=== PATIENT | male | born 1945 | race Caucasian/White ===

== ENCOUNTER 2019-07-16 15:18 | Emergency (ER) | payer OTHER, SELFPAY ==
--- NOTE | 2019-07-16 | CTR_ITS ---
[facility] Final Radiology Report Call: [phone] assistance Online chat: [email or web address] Name: NICHOLAS SMALL Age: 73Years M Date: 07/16/2019 SSN: -- : [id number] Study: CT CHEST W Requesting Physician: KRISTOPHER VIRGEN Images: [id number] Add?l Studies: Provided Clinical History: Procedure Accession CTDI Vol (mGy) DLP (mGy-cm) CT CHEST W [id number] 455.23 PROCEDURE INFORMATION: Exam: CT Chest With Contrast Exam date and time: 07/16/2019 7:07 PM Age: 73 years old Clinical indication: Shortness of breath TECHNIQUE: Imaging protocol: Computed tomography of the chest with intravenous contrast. Radiation optimization: All CT scans at this facility use at least one of these dose optimization techniques: automated exposure control; mA and/or kV adjustment per patient size (includes targeted exams where dose is matched to clinical indication); or iterative reconstruction. Contrast material: OMNI 300; Contrast volume: 95 ml; Contrast route: IV; COMPARISON: CR XR chest 2V* [id number] 07/16/2019 4:59 PM FINDINGS: Lungs: Advanced generalized centrilobular emphysema is noted diffusely throughout all lobes and is more severe in the lung apices. No pneumonia or mass. Pleural space: Unremarkable. No pneumothorax. No pleural effusion. Heart: Unremarkable. No cardiomegaly. No pericardial effusion. Pulmonary arteries: Overall exam quality is good for evaluating the pulmonary arteries. There are no intraluminal filling defects to indicate pulmonary embolism. Aorta: The ascending thoracic aorta is mildly enlarged up to 4.1 cm. There is no dissection or wall thickening. The descending thoracic aorta is atherosclerotic but normal in size. The visualized abdominal aorta is heavily atherosclerotic. Lymph nodes: Unremarkable. No enlarged lymph nodes. Gallbladder and bile ducts: Gallstones in the gallbladder nonobstructing. Adrenals: 1.3 cm fatty right adrenal nodule is most consistent with adenoma. Kidneys and ureters: Several bilateral simple intrarenal cysts. At least one 6 mm non-obstructing left intrarenal calculus. Bones/joints: Unremarkable. No acute fracture. Soft tissues: See Aorta Finding. IMPRESSION: 1. No pulmonary embolism or pneumonia. 2. Advanced emphysema. 3. Mildly dilated ascending thoracic aorta. 4. Nonobstructing gallstones. 5. Nonobstructing left intrarenal calculus. Thank you for allowing us to participate in the care of your patient. Dictated and Authenticated by: Jordana Cutler MD 07/16/2019 7:18 PM Central Time ([place] & [place]) [facility]ITAL[facility]ak[facility]
[2019-07-16 15:53] VITALS: BP 148/71; PULSE 84; RESP 20; TEMP 36.8; O2SAT 80; BMI 17.5
[2019-07-16 16:07] VITALS: O2SAT 93
--- NOTE | 2019-07-16 16:16 | ED_ITS ---
Entered by Kathrin Clemens, acting as scribe for Jami Castro MD, MSM Jul 16, 2019 15:18 HPI - SOB/Dyspnea General: Chief Complaint: Shortness of Breath/Dyspnea Stated Complaint: SOB Time Seen by Provider: 07/16/19 16:07 Source: patient and family Mode of arrival: ambulatory Limitations: no limitations History of Present Illness: HPI Narrative: 73 yo male presents with increased shortness of breath. pt states this started 2 days ago. pt states this he wears 4L at home and to increased oxygen to 4 1/2 L. pt states exertion, cough and deep breaths makes this worse and sitting upright makes it better. pt denies any other symptoms at this time.pt has a hx of COPD. MD elicited complaint: shortness of breath Pertinent past history: COPD Onset (ago): day(s) (2 days ago) Timing: progressively worsening Severity: moderate Exacerbating factors: exertion, coughing and deep breaths Relieving factors: oxygen Known history of: COPD Associated symptoms: Reports cough; Deny abdominal pain, fever(s), nausea, polydipsia, polyuria or vomiting Treatment prior to arrival: oxygen Related Data: Home oxygen amount: 4 liters Review of Systems General: Reports: 10 or more systems reviewed and unremarkable except in HPI and below Const: Denies: fever, chills or body aches Eyes: Reports: blind spots; Denies: change in vision or blurry vision ENMT: Denies: throat pain, enlarged tonsils, painful swallowing, hoarseness, mouth pain or swelling of lips/tongue Card: Reports: shortness of breath on exertion Resp: Reports: productive cough GI: Denies: abdominal pain, nausea or vomiting : Denies: flank pain, painful urination, urinary frequency, urinary urgency or urinary hesitancy Musc: Denies: neck pain, back pain or extremity swelling Skin/Breast: Denies: rash, itching or redness Neuro: Denies: headache, numbness in extremities or weakness in extremities Endo: Denies: excessive urination, excessive thirst or tired all the time PFS ED PFSH: Medical History (Updated 07/16/19 @ 21:07 by Jami Castro MD, [facility]) History of chronic obstructive pulmonary disease Social History Smoking and tobacco status: former smoker Physical Exam Const: COMMON NORMALS: no apparent distress, average body habitus, oriented x3, no limitations, healthy appearing, alert and well nourished HENMT: COMMON NORMALS: normocephalic, head/scalp atraumatic and moist oral mucous membranes HEAD & SCALP: normocephalic and atraumatic Eye: COMMON NORMALS: PERRL, EOMs intact bilaterally, conjunctivae normal and no scleral icterus CONJUNCTIVA: Yes conjunctivae normal PUPIL: Yes PERRL Neck/C-Spine: COMMON NORMALS: full ROM, supple, no meningeal signs, no JVD and no carotid bruits Chest: COMMONS NORMALS: inspection of chest normal and palpation of chest normal Resp: COMMON NORMALS: normal respiratory effort, no retractions, no use of accessory muscles, clear to auscultation bilaterally and percussion normal AUSCULTATION: clear to auscultation bilaterally PERCUSSION: percussion normal Cardio: COMMON NORMALS: no JVD, regular rate, regular rhythm, S1 normal heart sound, S2 normal heart sound, no gallops, no clicks, no murmurs, no rub and peripheral pulses 2+ throughout RATE: regular rate RHYTHM: regular rhythm HEART SOUNDS: S1 normal and S2 normal PERIPHERAL PULSES: pulses 2+ throughout GI: COMMON NORMALS: normal to inspection, nondistended, normoactive bowel sounds, soft to palpation, non-tender, no hepatosplenomegaly, no masses and no bruits PALPATION: Yes soft and Yes no hepatosplenomegaly : COMMON NORMALS: Yes no CVA tenderness BLADDER/KIDNEY EXAM: Yes no CVA tenderness Back/Pelvis: COMMON NORMALS: no CVA tenderness Extremity: COMMON NORMALS: normal to inspection, full ROM, normal capillary refill, no calf tenderness and no pedal edema Neuro: COMMON NORMALS: oriented x3 SENSORIUM/ORIENTATION: Yes alert MENINGEAL SIGNS: Yes no meningeal signs Skin: COMMON NORMALS: no rashes or lesions noted, no wounds, skin turgor normal, no jaundice, no petechiae and no mottling GENERAL SKIN EXAM: no rashes or lesions noted and turgor normal Course ED course: On further discussion with the patient, the patient and his niece state that he has been in and out of the hospital at [facility] about 6 times in the last 3 months for respiratory/cardiac issues. He just got discharged a few days ago after a 5-day stay in the hospital for COPD exacerbation. He is still currently on prednisone. He is not currently on antibiotics. Reevaluation(s): Reevaluation #1: Discussed his lab and imaging findings with him. White cell count is significantly elevated however the patient is cu rrently on prednisone. Chest x-ray and chest CT negative for pneumonia or other acute findings. Troponin mildly elevated but 2-hour delta flat. After explaining all his labs and imaging findings with him we discussed all possible treatment options including admission versus outpatient care. The patient opted to be discharged home. He obtained marked improvement following the DuoNeb breathing treatments. He recently had a course of antibiotics and I will give him a 5-day course of Levaquin. He voiced understanding and is in agreement with the plan Time: 21:05 Vital Signs: Vital signs: Vital Signs Temperature 98.2 F 07/16/19 15:53 Pulse Rate 62 07/16/19 21:58 Respiratory Rate 16 07/16/19 21:58 Blood Pressure 145/74 07/16/19 21:58 Pulse Oximetry 95 07/16/19 21:58 MDM - SOB/Dyspnea MDM Narrative: Medical decision making narrative: 73-year-old gentleman with clinical features consistent with a COPD exacerbation. Patient has had increased shortness of breath and increased his oxygen slightly from 4 L/min to 4-1/2 L/min over the last few days. Patient obtained improvement following intravenous steroids as well as inhaled beta agonist. Patient opted to be discharged home as he felt better. He will follow-up with his primary care provider and his aerobics teacher. Leukocytosis is likely secondary to steroid use. Medical Records: Attestation: I reviewed the patient's medical records. Lab Data: Attestation: I reviewed the patient's lab results. Labs: Lab Results 07/16/19 07/16/19 07/16/19 Range/Units 16:20 16:20 16:20 WBC 19.1 H (4.0-10.0) 10^3/ uL RBC 4.57 (4.1-5.3) 10^6/u L Hgb 13.4 (11.7-16.6) g/dL Hct 44.0 (42.0-52.0) % MCV 96.3 H (80-94) fL MCH 29.3 (28.0-34.0) pg MCHC 30.5 (30.0-36.0) g/dL RDW 15.2 H (12.1-15.1) % Plt Count 349 (130-400) 10^3/c mm MPV 10.8 H (7.4-10.4) fL Neut % (Auto) 91.8 % Lymph % (Auto) 2.9 % Meigs % (Auto) 2.7 % Eos % (Auto) 0.1 % Baso % (Auto) 0.1 % Neut # (Auto) 17.6 H (1.8-7.7) 10^3/u L Lymph # (Auto) 0.6 L (0.8-4.8) 10^3/u L Meigs # (Auto) 0.5 (0.2-0.9) 10^3/u L Eos # (Auto) 0.0 (0.0-0.8) 10^3/u L Baso # (Auto) 0.0 (0.0-0.1) 10^3/u L Nucleated RBC % (a uto) 0 % Nucleated RBCs # 0.0 /100WBC D-Dimer 0.43 (0-0.59) ug/mIFE U Sodium 143 (136-145) mmol/L Potassium 5.0 (3.5-5.1) mmol/L Chloride 100 (98-107) mmol/L Carbon Dioxide 34 H (22-29) mmol/L Anion Gap 14.0 (5-19) BUN 37 H (8-23) mg/dL Creatinine 0.9 (0.7-1.2) mg/dL Glucose 121 H (65-115) mg/dL Lactate (0.5-2.2) mmol/L Calcium 9.3 (8.5-10.5) mg/dL Total Bilirubin 0.4 (0.15-1.2) mg/dL AST 11 (0-40) U/L ALT 17 (0-41) U/L Alkaline Phosphata se 64 (40-130) IU/L Troponin T Baselin e (0-15) ng/mL Troponin T 120 Min united auburn (0-15) ng/mL Delta Troponin T (0-10) ABS# NT-Pro-B Natriuret Pep 391 H (0-125) pg/mL Total Protein 6.3 L (6.6-8.7) g/dL Albumin 4.2 (3.5-5.2) g/dL Globulin 2.1 (1.3-4.6) g/dL Influenza Type A A g (Negative) POC Influenza B Ag (Negative) 07/16/19 07/16/19 07/16/19 Range/Units 16:20 16:20 16:35 WBC (4.0-10.0) 10^3/ uL RBC (4.1-5.3) 10^6/u L Hgb (11.7-16.6) g/dL Hct (42.0-52.0) % MCV (80-94) fL MCH (28.0-34.0) pg MCHC (30.0-36.0) g/dL RDW (12.1-15.1) % Plt Count (130-400) 10^3/c mm MPV (7.4-10.4) fL Neut % (Auto) % Lymph % (Auto) % Meigs % (Auto) % Eos % (Auto) % Baso % (Auto) % Neut # (Auto) (1.8-7.7) 10^3/u L Lymph # (Auto) (0.8-4.8) 10^3/u L Meigs # (Auto) (0.2-0.9) 10^3/u L Eos # (Auto) (0.0-0.8) 10^3/u L Baso # (Auto) (0.0-0.1) 10^3/u L Nucleated RBC % (a uto) % Nucleated RBCs # /100WBC D-Dimer (0-0.59) ug/mIFE U Sodium (136-145) mmol/L Potassium (3.5-5.1) mmol/L Chloride (98-107) mmol/L Carbon Dioxide (22-29) mmol/L Anion Gap (5-19) BUN (8-23) mg/dL Creatinine (0.7-1.2) mg/dL Glucose (65-115) mg/dL Lactate 1.3 (0.5-2.2) mmol/L Calcium (8.5-10.5) mg/dL Total Bilirubin (0.15-1.2) mg/dL AST (0-40) U/L ALT (0-41) U/L Alkaline Phosphata se (40-130) IU/L Troponin T Baselin e 25 H (0-15) ng/mL Troponin T 120 Min united [place] (0-15) ng/mL Delta Troponin T (0-10) ABS# NT-Pro-B Natriuret Pep (0-125) pg/mL Total Protein (6.6-8.7) g/dL Albumin (3.5-5.2) g/dL Globulin (1.3-4.6) g/dL Influenza Type A A g Negative (Negative) POC Influenza B Ag Negative (Negative) 07/16/19 Range/Units 18:07 WBC (4.0-10.0) 10^3/ uL RBC (4.1-5.3) 10^6/u L Hgb (11.7-16.6) g/dL Hct (42.0-52.0) % MCV (80-94) fL MCH (28.0-34.0) pg MCHC (30.0-36.0) g/dL RDW (12.1-15.1) % Plt Count (130-400) 10^3/c mm MPV (7.4-10.4) fL Neut % (Auto) % Lymph % (Auto) % Meigs % (Auto) % Eos % (Auto) % Baso % (Auto) % Neut # (Auto) (1.8-7.7) 10^3/u L Lymph # (Auto) (0.8-4.8) 10^3/u L Meigs # (Auto) (0.2-0.9) 10^3/u L Eos # (Auto) (0.0-0.8) 10^3/u L Baso # (Auto) (0.0-0.1) 10^3/u L Nucleated RBC % (a uto) % Nucleated RBCs # /100WBC D-Dimer (0-0.59) ug/mIFE U Sodium (136-145) mmol/L Potassium (3.5-5.1) mmol/L Chloride (98-107) mmol/L Carbon Dioxide (22-29) mmol/L Anion Gap (5-19) BUN (8-23) mg/dL Creatinine (0.7-1.2) mg/dL Glucose (65-115) mg/dL Lactate (0.5-2.2) mmol/L Calcium (8.5-10.5) mg/dL Total Bilirubin (0.15-1.2) mg/dL AST (0-40) U/L ALT (0-41) U/L Alkaline Phosphata se (40-130) IU/L Troponin T Baselin e (0-15) ng/mL Troponin T 120 Min united [place] 23.73 H (0-15) ng/mL Delta Troponin T -1.27 L (0-10) ABS# NT-Pro-B Natriuret Pep (0-125) pg/mL Total Protein (6.6-8.7) g/dL Albumin (3.5-5.2) g/dL Globulin (1.3-4.6) g/dL Influenza Type A A g (Negative) POC Influenza B Ag (Negative) EKG Data^: EKG 1: Attestation: I personally reviewed and interpreted this EKG as follows: EKG Interpretation Date: 07/16/19 EKG interpretation time: 16:35 Prior EKG tracings: not available for review Interpretation: Normal sinus rhythm. Heart rate 74. No ST changes. Normal axis. EKG 2: Attestation: I personally reviewed and interpreted this EKG as follows: EKG Interpretation Date: 07/16/19 EKG interpretation time: 18:29 Prior EKG tracings: available for review Interpretation: Unchanged from earlier today Discharge Plan Discharge Patient Disposition: Home, Self-Care Clinical Impression: Acute exacerbation of chronic obstructive airways disease Condition: Stable Prescriptions: New levofloxacin 750 mg tablet 750 mg PO DAILY 5 Days Qty: 5 RF: 0 Continued prednisone 10 mg tablet See Rx Instructions .ROUTE .COMPLEX RF: 0 albuterol sulfate 2.5 mg /3 mL (0.083 %) solution for nebulization 2.5 mg inhalation Q4H PRN (Reason: Shortness Of Breath) RF: 0 amiodarone 200 mg tablet 200 mg PO BID RF: 0 tamsulosin 0.4 mg capsule 0.4 mg PO BEDTIME RF: 0 aspirin 81 mg Tablet,Chewable 81 mg PO DAILY RF: 0 metoprolol succinate 25 mg tablet extended release 24 hr 25 mg PO DAILY RF: 0 28 mg iron- 800 mcg Tablet 1 tab PO DAILY RF: 0 Discharge Orders: Discharge Order (Routine); Ordered 07/16/19 Ordered By: Jami Castro Referrals: Anupama Hyman MD [Primary Care Provider] - 4-7 days Patient Instructions: Chronic Obstructive Pulmonary Disease (ED) Activity Restrictions/Additional Instructions: Return for any new or worsening symptoms. Take the antibiotic as prescribed. Complete your steroids that you are currently taking. Use your breathing treatments every 4 hours as you are doing. Call your aerobics teacher tomorrow to schedule an appointment to be seen as soon as possible. Follow-up with your primary care provider within 1 week. Discharge Date/Time: 07/16/19 22:00 Coding Level of Care Code ED Scale Tester for Chg Fwd Exam Comprehensive The documentation recorded by the Sarath sanchez Bridget Annette, accurately reflects the service I personally performed and the decisions made by , Jami Castro MD, [facility] Jul 16, 2019 15:18
--- NOTE | 2019-07-16 16:26 | ECG_ITS ---
Measurements Intervals [place] Rate: 74 P: 76 IA: 170 QRS: 12 QRSD: 69 T: 70 QT: 374 QTc: 416 SINUS RHYTHM Compared to ECG 09/14/2018 01:51:53 No significant changes Electronically Signed On 07-17-2019 13:19:17 ROUGE MILLER by Mojgan Paul M.D. [email or web address]
--- NOTE | 2019-07-16 16:28 | XR_ITS ---
WS: [id number] XR chest 2V* [id number] REASON FOR EXAM: SOB FINDINGS: Hyperaeration of both lung archuleta with decreased vascularity and increased radiolucency of both lung archuleta. Findings consistent with advanced chronic obstructive pulmonary disease. Comparison s were made to September 14, 2018 appears to be increased changes in both lung archuleta. The heart and mediastinal interfaces were normal. Arteriosclerotic changes in the arch of the aorta. The hilum and apices are normal. XR/XR chest 2V* [id number] IMPRESSION: Moderately advanced chronic obstructive pulmonary disease. Arteriosclerotic changes in the arch of the aorta.
[2019-07-16 16:52] LABS: Basophils % 0.1 %; Eosinophils % 0.1 %; Hemoglobin 13.4 g/dL (11.7-16.6); Lymphocytes # 0.6 10^3/uL (0.8-4.8); Lymphocytes % 2.9 %; Mean Corpuscular HGB Conc 30.5 g/dL (30.0-36.0); Mean Corpuscular Hemoglobin 29.3 pg (28.0-34.0); Mean Corpuscular Volume 96.3 fL (80-94); Mean Platelet Volume 10.8 fL (7.4-10.4); Monocytes # 0.5 10^3/uL (0.2-0.9); Monocytes % 2.7 %; Neutrophils # 17.6 10^3/uL (1.8-7.7); Neutrophils % 91.8 %; Nucleated Red Blood Cells % 0 %; Platelet Count 349 10^3/cmm (130-400); Red Blood Count 4.57 10^6/uL (4.1-5.3); Red Cell Distribution Width 15.2 % (12.1-15.1); White Blood Count 19.1 10^3/uL (4.0-10.0)
[2019-07-16 16:59] LABS: D Dimer 0.43 ug/mIFEU (0-0.59)
[2019-07-16 17:06] LABS: Influenza A by IFA Negative (Negative); Influenza B by IFA Negative (Negative)
[2019-07-16 17:07] LABS: Lactate (Lactic Acid level) 1.3 mmol/L (0.5-2.2)
[2019-07-16 17:10] LABS: Troponin(5th) Baseline 25 ng/mL (0-15)
[2019-07-16 17:28] LABS: Alanine Aminotransferase 17 U/L (0-41); Albumin Level 4.2 g/dL (3.5-5.2); Alkaline Phosphatase 64 IU/L (40-130); Aspartate Amino Transferase 11 U/L (0-40); Blood Urea Nitrogen 37 mg/dL (8-23); Calcium 9.3 mg/dL (8.5-10.5); Carbon Dioxide 34 mmol/L (22-29); Chloride 100 mmol/L (98-107); Globulin 2.1 g/dL (1.3-4.6); Glucose 121 mg/dL (65-115); NT Pro B Type Natriuretic Pept 391 pg/mL (0-125); Sodium 143 mmol/L (136-145); Total Bilirubin 0.4 mg/dL (0.15-1.2); Total Protein 6.3 g/dL (6.6-8.7)
[2019-07-16 17:38] VITALS: PULSE 120; RESP 18; O2SAT 97
[2019-07-16] MEDS: ipratropium-albuterol 3 mL Neb INHALATION (17:38)
[2019-07-16 17:44] VITALS: PULSE 114; RESP 18; O2SAT 97
--- NOTE | 2019-07-16 18:26 | ECG_ITS ---
Measurements Intervals [place] Rate: 74 P: 76 OR: 170 QRS: 12 QRSD: 69 T: 70 QT: 374 QTc: 416 SINUS RHYTHM Compared to ECG 09/14/2018 01:51:53 No significant changes Electronically Signed On 07-17-2019 17:31:31 CHIEF PHYSICAL THERAPIST by Mojgan Paul M.D. [email or web address]
[2019-07-16] MEDS: iohexol 300 mg/mL 100 mL Btl 95 ML IV (18:55)
[2019-07-16 19:00] LABS: Troponin 5 2HR 23.73 ng/mL (0-15)
[2019-07-16 19:01] LABS: Troponin 5 2HR Delta -1.27 ABS# (0-10)
[2019-07-16 21:58] VITALS: BP 145/74; PULSE 62; RESP 16; O2SAT 95
--- NOTE | 2019-07-19 09:53 | DCPLANNER ---
manager endoscopy had message to schedule a follow up appointment for patient with Dr. Curry, at [facility]. manager endoscopy called [facility], spoke with Ramila, a follow up appointment was scheduled for Wednesday, August 07, 2019 at 11:[address] Curry. Clinic will call patient with appointment information.
--- NOTE | 2019-08-08 11:47 | DCPLANNER ---
Patients appointment scheduled for 08.07.19 was rescheduled.
== END 2019-07-16 22:00 | disposition home or self-care (01) ==
PROVIDERS: Emergency Provider Family Medicine; Family Provider Family Medicine; PCP Family Medicine
DX: J44.1 Chronic obstructive pulmonary disease with (acute) exacerbation (principal); Z79.52 Long term (current) use of systemic steroids; Z87.891 Personal history of nicotine dependence; Z99.81 Dependence on supplemental oxygen
CPT/HCPCS: 36415; 71046; 71260; 80053; 83605; 83880; 84484; 85025; 85378; 87804; 93005; 94640; 96374; 96375; 99283; 99284; J2930; Q9967

== ENCOUNTER 2020-10-02 09:02 | Outpatient (CLI) | payer MEDICARE, MEDICAID, SELFPAY ==
--- NOTE | 2020-10-02 09:23 | XR_ITS ---
WS: [id number] KUB, AP view, 10/02/2020 Clinical Data: CALCULUS OF KIDNEY Comparison: CT abdomen and pelvis, 02/11/2020. Findings: There are calcifications in the right upper quadrant consistent with gallstones. There are bilateral calcifications over both kidneys. There is air in the small bowel and colon. There is a large amount of fecal material throughout the colon which obscures detail over both kidneys. There is osteoporosis and probable old compression fractures of the lumbar spine. XR/XR KUB [id number] Impression: 1. Bilateral renal calcifications. 2. Cholelithiasis. 3. Fecal material throughout the colon obscuring detail over the kidneys and tr ue pelvis.
== END 2020-10-02 09:03 | disposition home or self-care (01) ==
LOC: RAD 09:11
PROVIDERS: PCP Family Medicine; Visit Provider Urology
DX: N20.0 Calculus of kidney (principal); K80.20 Calculus of gallbladder without cholecystitis without obstruction
CPT/HCPCS: 74018

== ENCOUNTER → 2020-10-23 10:49 | Outpatient (BNVA) | payer MEDICARE, MEDICAID, SELFPAY | PROVIDERS: PCP Family Medicine; Visit Provider Internal Medicine Critical Care Medicine | DX: Z01.812 Encounter for preprocedural laboratory examination (principal); Z20.822 Contact with and (suspected) exposure to COVID-19 | CPT/HCPCS: 87635 ==

== ENCOUNTER 2020-11-10 06:59 | Outpatient (CLI) | payer MEDICARE, MEDICAID, SELFPAY ==
--- NOTE | 2020-11-10 13:45 | PFTS_ITS ---
Date of Study:11/10/20 Date of Dictation: 11/17/20 MECHANICS: Pre bronchodilator Forced vital capacity (FVC) is reduced 60% . Pre bronchodilator Forced expiratory volume in one second (FEV1) is very severely reduced 17% . FEV1/FVC is significantly reduced. There is no post bronchodialator study. FLOW VOLUME LOOP: severe sloping of expiratory limb suggestive of severe airway obstruction . LUNG VOLUMES: Total lung capacity (TLC) is increased . Very high Residual volume (RV) suggestive of severe air trapping. DIFFUSING CAPACITY FOR CARBON MONOXIDE: severely reduced 31% . INTERPRETATION: The pulmonary function tests are consistent with severe obstructive ventilatory defect with significant air trapping on lung volumes and severely reduced gas transfer suggesting underlying severe emphysema. Clinical correlation recommended. [facility]
== END 2020-11-10 07:00 | disposition home or self-care (01) ==
LOC: RT 07:04
PROVIDERS: PCP Family Medicine; Visit Provider Internal Medicine Critical Care Medicine
DX: J44.9 Chronic obstructive pulmonary disease, unspecified (principal); J96.10 Chronic respiratory failure, unspecified whether with hypoxia or hypercapnia
CPT/HCPCS: 94010; 94726; 94729

== ENCOUNTER 2021-03-04 09:04 | Outpatient (CLI) | payer MEDICARE, MEDICAID, SELFPAY ==
--- NOTE | 2021-03-04 10:15 | XR_ITS ---
WS: [id number] XR KUB [id number] REASON FOR EXAM: BILATERAL RENAL STONES FINDINGS: Multiple complex intrarenal calculi bilaterally calculi range mid and total stone burden do not appea r to change significantly compared to the previous examination of 10/02/2020. No calculi are identified along the abdominal or pelvic course of the ureters or overlying the urinary bladder. No other significant abnormality of the abdomen is identified. XR/XR KUB [id number] IMPRESSION: Stable complex urinary tract calculi as above.
== END 2021-03-04 09:05 | disposition home or self-care (01) ==
PROVIDERS: PCP Family Medicine; Visit Provider Urology
DX: N20.0 Calculus of kidney (principal)
CPT/HCPCS: 74018; 81003; G0103

== ENCOUNTER → 2021-09-15 13:48 | Outpatient (BNVA) | payer MEDICARE, MEDICAID, SELFPAY | PROVIDERS: PCP Family Medicine; Visit Provider Internal Medicine Critical Care Medicine | DX: J44.9 Chronic obstructive pulmonary disease, unspecified (principal); J96.10 Chronic respiratory failure, unspecified whether with hypoxia or hypercapnia; K21.9 Gastro-esophageal reflux disease without esophagitis | CPT/HCPCS: 99214 ==